=== PATIENT | female | born 1955 | race Caucasian/White ===

== ENCOUNTER 2017-06-10 09:30 | Inpatient (IN) | payer OTHER ==
[~2017-06-10] VITALS: Ht 152.4 cm; Wt 60.6 kg
[2017-06-10 09:58] VITALS: BP 107/56
[2017-06-10 10:05] LABS: BASOPHILS % (AUTO) 1.1 % (0.0-5.0); EOSINOPHILS % (AUTO) 4.6 % (0.0-8.0); HEMATOCRIT 45.1 % (36-48); LYMPHOCYTES % (AUTO) 42.8 % (21.0-51.0); MEAN CORPUSCULAR HEMOGLOBIN 32.3 pg (27.0-33.0); MEAN CORPUSCULAR HGB CONC 34.4 g/dL (32.0-36.0); MEAN CORPUSCULAR VOLUME 93.8 fL (79-99); MONOCYTES % (AUTO) 5.8 % (3.0-13.0); NEUTROPHILS % (AUTO) 45.7 % (40.0-77.0); PLATELET COUNT (AUTO) 246 K/uL (130-400); RED BLOOD CELL COUNT(AUTO) 4.81 MIL/uL (4.00-5.50); RED CELL DISTRIBUTION WIDTH 12.9 % (11.0-15.5); WHITE BLOOD COUNT (AUTO) 7.3 K/uL (4.8-10.8)
[2017-06-10 10:12] LABS: POTASSIUM 4.2 mmol/L (3.5-5.1)
[2017-06-10] MEDS ORDERED: TRAZ-147 PO (10:25)
[2017-06-10] MEDS ORDERED: DULO60CA44 PO (10:25)
[2017-06-10] MEDS ORDERED: BACL20TA PO (10:25)
[2017-06-10] MEDS ORDERED: GABA-529 PO (10:25)
[2017-06-10] MEDS ORDERED: LIOT5TAB8 PO (10:25)
[2017-06-10] MEDS ORDERED: LEVO50 PO (10:25)
[2017-06-10] MEDS ORDERED: HYDR-4068 PO (10:25)
[2017-06-10] MEDS ORDERED: CEFAZOLIN SODIUM 1 GM VIAL IVP SCH (12:45)
[2017-07-01 11:29] LABS: BASOPHILS % (AUTO) 1.3 % (0.0-5.0); EOSINOPHILS % (AUTO) 3.2 % (0.0-8.0); HEMATOCRIT 45.3 % (36-48); LYMPHOCYTES % (AUTO) 39.4 % (21.0-51.0); MEAN CORPUSCULAR HEMOGLOBIN 32.8 pg (27.0-33.0); MEAN CORPUSCULAR HGB CONC 35.1 g/dL (32.0-36.0); MEAN CORPUSCULAR VOLUME 93.3 fL (79-99); MONOCYTES % (AUTO) 6.7 % (3.0-13.0); NEUTROPHILS % (AUTO) 49.4 % (40.0-77.0); NUCLEATED RED BLOOD CELLS 0.1 % (0.0-0.19); PLATELET COUNT (AUTO) 278 K/uL (130-400); RED BLOOD CELL COUNT(AUTO) 4.86 MIL/uL (4.00-5.50); RED CELL DISTRIBUTION WIDTH 12.8 % (11.0-15.5); WHITE BLOOD COUNT (AUTO) 9.4 K/uL (4.8-10.8)
[2017-07-01 11:34] LABS: POTASSIUM 4.1 mmol/L (3.5-5.1)
[2017-07-01] MEDS: CEFAZOLIN SODIUM 1 GM VIAL IVP SCH (12:15)
[2017-07-02] MEDS: CEFAZOLIN SODIUM 1 GM VIAL IVP SCH (12:15)
[2017-07-03] MEDS: CEFAZOLIN SODIUM 1 GM VIAL IVP SCH (12:15)
[2017-07-04] MEDS: CEFAZOLIN SODIUM 1 GM VIAL IVP SCH (12:15)
[2017-07-05] VITALS (21 sets, daily range): BP systolic 104–142; BP diastolic 46–100
[2017-07-05] MEDS ORDERED: GLYCOPYRROLATE 0.2 MG/ML 5 ML VIAL ONE (05:56)
[2017-07-05] MEDS ORDERED: LIDOCAINE PF 2% 5ML ABBOJECT ONE (05:56)
[2017-07-05] MEDS ORDERED: DEXAMETHASONE SOD PHOSPHATE 10MG/ML 1ML VIAL ONE (05:56)
[2017-07-05] MEDS ORDERED: MIDAZOLAM HCL 1 MG/ML 2ML VIAL ONE (05:58)
[2017-07-05] MEDS ORDERED: FENTANYL CITRATE PF 50 MCG/1 ML 2ML VIAL ONE ×2 (05:58→08:55)
[2017-07-05] MEDS ORDERED: PROPOFOL 10 MG/ML 20ML VIAL IV ONE (05:58)
[2017-07-05] MEDS ORDERED: LACTATED RINGERS 1000ML 1,000 ML IV ONE (06:34)
[2017-07-05] MEDS ORDERED: BACITRACIN 50,000 UNIT VIAL ONE (06:54)
[2017-07-05] MEDS ORDERED: THROMBIN-JMI 20000 UNIT KIT TP ONE (06:54)
[2017-07-05] MEDS ORDERED: BUPIVACAINE/EPI/PF 0.25% 30ML VIAL IJ ONE (06:54)
[2017-07-05] MEDS ORDERED: ALBU18HF7 IH (07:02)
[2017-07-05] MEDS ORDERED: IPRA4AER IH (07:02)
[2017-07-05] MEDS ORDERED: SODIUM CHLORIDE 0.9% 10 ML VIAL ONE (07:11)
[2017-07-05] MEDS: CEFAZOLIN SODIUM 1 GM VIAL IVP SCH (08:00)
[2017-07-05] MEDS ORDERED: CALDOLOR 800MG+NS 250ML 250 ML IV ONE (08:25)
[2017-07-05] MEDS ORDERED: EPHEDRINE SULFATE 50 MG/ML AMPULE ONE (09:00)
[2017-07-05] MEDS ORDERED: SUB TO ALBUTEROL 2.5MG/3ML NEBULES PER P&T IH ONE (10:33)
[2017-07-05] MEDS ORDERED: ROCURONIUM BROMIDE 10MG/1ML 5ML VL ONE (10:46)
[2017-07-05] MEDS ORDERED: SODIUM CHLORIDE 0.9% 10 ML VIAL IVP PRN (11:30)
[2017-07-05] MEDS ORDERED: SUB TO ALBUTEROL 2.5MG/3ML NEBULES PER P&T IH SCH (11:30)
[2017-07-05] MEDS ORDERED: NON-FORMULARY MEDICATION 1 EACH (Ipratropium/Albuterol Sulfate (Combivent Respimat Inhal S IH SCH (11:30)
[2017-07-05] MEDS ORDERED: PROMETHAZINE HCL 25 MG/ML 1ML AMPULE IM PRN (11:30)
[2017-07-05] MEDS ORDERED: HYDROCODONE/ACETAMINOPHEN 5/325 MG TAB PO PRN (11:30)
[2017-07-05] MEDS ORDERED: MORPHINE SULFATE 2 MG/ML 1ML SYG IVP PRN ×2 (11:30→14:15)
[2017-07-05] MEDS ORDERED: HYDROCODONE/ACETAMINOPHEN 10/325 MG TAB PO PRN (11:30)
[2017-07-05] MEDS: DEXAMETHASONE SOD PHOSPHATE 4 MG/ML 1ML VIAL IVP SCH ×3 (11:30→23:27)
[2017-07-05] MEDS ORDERED: PROMETHAZINE HCL 25 MG/ML 1ML AMPULE IM ONE (11:33)
[2017-07-05] MEDS ORDERED: MEPERIDINE-PF 25 MG/ML SYG ONE (11:33)
[2017-07-05] MEDS: LACTATED RINGERS 1000ML 1,000 ML IV SCH ×2 (12:30→23:27)
[2017-07-05] MEDS ORDERED: CEFAZOLIN 1GM / D5W 50ML 50 ML IV SCH (15:30)
[2017-07-05] MEDS ORDERED: CEFAZOLIN SODIUM 1 GM VIAL IVP SCH (15:30)
[2017-07-05] MEDS: HYDROCODONE/ACETAMINOPHEN 10/325 MG TAB PO PRN ×2 (17:52→21:50)
[2017-07-05] MEDS ORDERED: BACLOFEN 10 MG TABLET PO SCH (21:00)
[2017-07-05] MEDS ORDERED: GABAPENTIN 100 MG CAPSULE PO SCH (21:00)
[2017-07-05] MEDS ORDERED: TRAZODONE HCL 100 MG TABLET PO SCH (21:00)
[2017-07-06] VITALS: BP 101/64
[2017-07-06] MEDS: HYDROCODONE/ACETAMINOPHEN 10/325 MG TAB PO PRN ×3 (01:56→10:37)
[2017-07-06 04:00] VITALS: BP 110/68
[2017-07-06] MEDS: DEXAMETHASONE SOD PHOSPHATE 4 MG/ML 1ML VIAL IVP SCH ×2 (05:52→12:10)
[2017-07-06] MEDS ORDERED: LEVOTHYROXINE 50 MCG TABLET PO SCH (06:30)
[2017-07-06 08:11] VITALS: BP 94/54
[2017-07-06] MEDS ORDERED: DULOXETINE HCL 30 MG CAP PO SCH (09:00)
[2017-07-06] MEDS ORDERED: LIOTHYRONINE SODIUM 5 MCG PO SCH (09:00)
== END 2017-07-06 12:20 | disposition home or self-care (01) | DRG 320 ==
LOC: EDSTATUS 06-14 09:30 → DAHIP 07-05 05:58 → 4AH 07-05 12:05
PROVIDERS: ADMIT Neurological Surgery; ATTEND Neurological Surgery
PROC: 0PJY0ZZ Inspection of Upper Bone, Open Approach (ICD-10-PCS; principal; 2017-07-05 07:40)
DX: D36.10 Benign neoplasm of peripheral nerves and autonomic nervous system, unspecified (principal); E03.9 Hypothyroidism, unspecified; E78.5 Hyperlipidemia, unspecified; G47.33 Obstructive sleep apnea (adult) (pediatric); G89.29 Other chronic pain; M79.7 Fibromyalgia; F41.9 Anxiety disorder, unspecified; F32.9 Major depressive disorder, single episode, unspecified; G93.0 Cerebral cysts; J44.9 Chronic obstructive pulmonary disease, unspecified; Z88.8 Allergy status to other drugs, medicaments and biological substances; Z82.49 Family history of ischemic heart disease and other diseases of the circulatory system
CPT/HCPCS: 36415; 76000; 80051; 84443; 84481; 85025; 88305; 88311; 88341; 88342; A4218; A4344; J0690; J1100; J1741; J2001; J2175; J2250; J2550; J2704; J3010; J3490; J7030; J7120

== ENCOUNTER → 2018-03-03 | Outpatient (CLI) | payer OTHER ==
[~2018-03-03] MED LIST: ALBU18HF7 IH; BACL20TA PO; DULO60CA44 PO; GABA-529 PO; HYDR-4068 PO; IPRA4AER IH; LEVO50 PO; LIOT5TAB8 PO; TRAZ-187 PO
[2018-03-03 16:23] LABS: EOSINOPHILS % (AUTO) 4.5 % (0.0-8.0); HEMATOCRIT 41.3 % (36-48); LYMPHOCYTES % (AUTO) 45.8 % (21.0-51.0); MEAN CORPUSCULAR HEMOGLOBIN 32.2 pg (27.0-33.0); MEAN CORPUSCULAR HGB CONC 34.4 g/dL (32.0-36.0); MEAN CORPUSCULAR VOLUME 93.6 fL (79-99); MONOCYTES % (AUTO) 7.8 % (3.0-13.0); NEUTROPHILS % (AUTO) 40.9 % (40.0-77.0); PLATELET COUNT (AUTO) 255 K/uL (130-400); RED BLOOD CELL COUNT(AUTO) 4.41 MIL/uL (4.00-5.50); RED CELL DISTRIBUTION WIDTH 12.2 % (11.0-15.5)
[2018-03-03 16:39] LABS: ALBUMIN 3.6 g/dL (3.5-5.0); BILIRUBIN,TOTAL 0.2 mg/dL (0.2-1.0); CREATININE 0.8 mg/dL (0.5-1.5); POTASSIUM 3.8 mmol/L (3.5-5.1); TOTAL PROTEIN, SERUM 6.8 g/dL (6.0-8.3)
== END | disposition home or self-care (01) ==
LOC: LAB 15:51
PROVIDERS: ATTEND Internal Medicine Gastroenterology
DX: R10.13 Epigastric pain (principal)
CPT/HCPCS: 36415; 80053; 82150; 83690; 85025

== ENCOUNTER → 2018-03-31 | Outpatient (CLI) | payer OTHER | END | disposition home or self-care (01) | LOC: RAH 08:03 | PROVIDERS: ATTEND Internal Medicine Gastroenterology | DX: R10.32 Left lower quadrant pain (principal) | CPT/HCPCS: 76700 ==

== ENCOUNTER → 2019-01-03 | Outpatient (CLI) | payer MEDICARE, OTHER ==
[~2019-01-03] MED LIST changes: -LIOT5TAB8 PO; +LIOT5TAB9 PO
== END | disposition home or self-care (01) ==
LOC: RAH 14:02
PROVIDERS: ATTEND Family Medicine
DX: Z12.31 Encounter for screening mammogram for malignant neoplasm of breast (principal)
CPT/HCPCS: 77067

== ENCOUNTER → 2019-05-02 | Outpatient (CLI) | payer MEDICARE ==
[~2019-05-02] MED LIST changes: +LIOT5TAB11 PO; -LIOT5TAB9 PO
== END | disposition home or self-care (01) ==
LOC: RAH 08:01
PROVIDERS: ATTEND Family Medicine
DX: M71.38 Other bursal cyst, other site (principal); M51.14 Intervertebral disc disorders with radiculopathy, thoracic region; D36.10 Benign neoplasm of peripheral nerves and autonomic nervous system, unspecified
CPT/HCPCS: 72146